=== PATIENT | male | born 1945 | race Caucasian/White ===

== ENCOUNTER → 2023-03-20 08:27 | Outpatient (REF) | payer MEDICARE, OTHER, SELFPAY ==
[2023-03-20 07:38] LABS: % Basophils 0.4 % (0-2); % Eosinophils 2.4 % (0-6); % Immature Granulocytes 0.2 % (0-0.5); % Lymphocytes 24.8 % (20.5-51.1); % Monocytes 8.4 % (1.7-9.3); % Neutrophils 63.8 % (42.2-75.2); Absolute Basophils 0.1 10^3/uL (0-0.2); Absolute Eosinophils 0.3 10^3/uL (0-0.7); Absolute Lymphocytes 2.8 10^3/uL (1.2-3.4); Absolute Neutrophils 7.2 10^3/uL (1.4-6.5); Hematocrit 41.5 % (39.0-52.0); Mean Corp Hgb Conc. 33.7 g/dL (33.0-37.0); Mean Platelet Volume 9.3 fL (7.4-10.4); Nucleated Red Blood Cells % 0 % (-); Platelet Count 167 10^3/uL (130-400); Red Blood Cell Count 4.37 10^6/uL (4.70-6.10); Red Cell Dist. Width 12.4 % (11.5-14.5); White Blood Cell Count 11.3 10^3/uL (4.8-10.8)
[2023-03-20 07:41] LABS: Urine Albumin Trace (Neg - Trace); Urine Bilirubin Negative (Negative); Urine Character Clear (Clear); Urine Color Yellow; Urine Glucose Trace (Negative); Urine Ketone Trace (Negative); Urine Leukocyte Trace (Negative); Urine Nitrite Negative (Negative); Urine Occult Blood 4+ (Negative); Urine Specific Gravity 1.015 (<1.030); Urine Urobilinogen Negative (Neg - 1+); Urine pH 6.5 (5.0-9.0)
[2023-03-20 08:01] LABS: ALT (SGPT) 11 U/L (0-50); AST (SGOT) 24 U/L (17-59); Albumin 3.9 g/dl (3.5-5.0); Alkaline Phosphatase 83 U/L (38-126); Blood Urea Nitrogen 28 mg/dl (9-20); Calcium 9.5 mg/dl (8.4-10.2); Carbon Dioxide 29 mmol/L (22-30); Chloride 99 mmol/L (98-107); Glucose 91 mg/dl (70-99); HDL Cholesterol 55 mg/dl; LDL Cholesterol, Calculated 148 mg/dl; Potassium 4.8 mmol/L (3.5-5.1); Sodium 136 mmol/L (135-145); Total Bilirubin 1.1 mg/dl (0.2-1.3); Total Cholesterol 220 mg/dl (50-199); Total Protein 6.6 g/dl (6.3-8.2); Triglyceride 85 mg/dl (10-149); Very Low Density Lipoprotein 17 mg/dl (0-30); eGFR > 60.00
[2023-03-20 08:14] LABS: Vitamin D, 25-OH*** 89.1 ng/mL (30-80)
[2023-03-20 08:28] LABS: PSA, Total - Screen 2.11 ng/ml (0.0-4.0)
[2023-03-20 08:31] LABS: Urine Red Blood Cell 0-2 /HPF (0-2); Urine White Cell 0-2 /HPF (0-5)
[2023-03-20 08:47] LABS: Vitamin B12 572 pg/ml (239-931)
[2023-03-20 09:15] LABS: Intact PTH 46.9 pg/ml (13.6-85.8)
== END ==
LOC: HWRAD 08:27
PROVIDERS: ATTENDING PHYSICIAN Nurse Practitioner Family; FAMILY PHYSICIAN Internal Medicine
DX: E21.3 Hyperparathyroidism, unspecified (principal); N18.31 Chronic kidney disease, stage 3a; R41.3 Other amnesia; E78.5 Hyperlipidemia, unspecified; Z12.5 Encounter for screening for malignant neoplasm of prostate; R29.810 Facial weakness
CPT/HCPCS: 36415; 80053; 80061; 81003; 81015; 82306; 82607; 83970; 85025; G0103

== ENCOUNTER → 2023-03-23 13:56 | Outpatient (REF) | payer MEDICARE, OTHER, SELFPAY | LOC: HWRAD 13:56 | PROVIDERS: ATTENDING PHYSICIAN Nurse Practitioner Family | DX: R41.3 Other amnesia (principal); R20.2 Paresthesia of skin; R29.810 Facial weakness | CPT/HCPCS: 70450 ==

== ENCOUNTER → 2023-04-23 10:53 | Outpatient (REF) | payer MEDICARE, OTHER, SELFPAY | LOC: HWRAD 10:53 | PROVIDERS: ATTENDING PHYSICIAN Nurse Practitioner Family; FAMILY PHYSICIAN Internal Medicine | DX: D72.829 Elevated white blood cell count, unspecified (principal); R31.9 Hematuria, unspecified | CPT/HCPCS: 76770 ==

== ENCOUNTER → 2023-06-06 | Outpatient (REF) | payer MEDICARE, OTHER, SELFPAY | LOC: DHSLP | PROVIDERS: ATTENDING PHYSICIAN Internal Medicine Critical Care Medicine; FAMILY PHYSICIAN Internal Medicine | DX: G47.33 Obstructive sleep apnea (adult) (pediatric) (principal); G47.31 Primary central sleep apnea; G47.61 Periodic limb movement disorder | CPT/HCPCS: 95811 ==

== ENCOUNTER → 2023-06-25 12:35 | Outpatient (REF) | payer MEDICARE, OTHER, SELFPAY | LOC: HWRCS 12:35 | PROVIDERS: ATTENDING PHYSICIAN Nurse Practitioner Family; FAMILY PHYSICIAN Internal Medicine | DX: G47.31 Primary central sleep apnea (principal) | CPT/HCPCS: 93306 ==

== ENCOUNTER → 2023-07-31 10:31 | Outpatient (REF) | payer MEDICARE, OTHER, SELFPAY | LOC: DHSLP 10:31 | PROVIDERS: ATTENDING PHYSICIAN Internal Medicine Critical Care Medicine; FAMILY PHYSICIAN Internal Medicine | DX: G47.33 Obstructive sleep apnea (adult) (pediatric) (principal); G47.61 Periodic limb movement disorder; G47.00 Insomnia, unspecified | CPT/HCPCS: 95811 ==

== ENCOUNTER 2023-09-18 11:24 | Emergency (ER) | payer MEDICARE, OTHER, SELFPAY ==
[2023-09-18 11:25] VITALS: BP 145/76
--- NOTE | 2023-09-18 12:52 | ED.SKININJ ---
HPI-Injury
General
Chief Complaint: Skin Surface Trauma
Source: patient
Exam Limitations: none
Time Seen by Provider: 09/18/23 11:57
Nursing documentation reviewed up to this point in time: agreed with
History of Present Illness-Injury
Initial Injury comments:
77-year-old male with history of A-fib on Eliquis, HTN, HLD, esophagectomy, hypothyroid states earlier today he was trimming bushes, he stepped over a small wall and impaled his right calf on a branch that was sticking up. He is unsure of his last
tetanus immunization.
Past History
Past History
ED Past Medical History: Arrthythmia (A-fib on Eliquis), HTN, Hypercholesterolemia and Other (Esophageal cancer )
ED Past Surgical History: Other (Cataract, espohagectomy)
Social History
Tobacco: Non-smoker
Alcohol: None
Drug: None
Personal:
Living: with family
Review of Systems
Review of Systems
Allergies reviewed?: Yes
All Other Systems: ROS reviewed and negative except as documented in HPI and ROS
Skin: Reports other (Cut back of right calf)
Skin Exam
Laceration
posterior mid right calf:
Length in cm: 6
Orientation: L shaped ('V' shaped)
Type of Laceration: simple
Any active bleeding?: no active bleeding
Distal skin color and temperature: normal-warm & good color
Normal distal neurovascular exam: Yes
Range of motion: full
Phy Exam
Physical Exam
Physical Exam:
PHYSICAL EXAMINATION:
General: no apparent distress, not acutely ill
Neuro: alert and oriented.
Psychiatric: well kept. interactive and cooperative
Musculoskeletal: Moves with ease
Skin: Warm, pink.
Course
Orders/Labs/Results
Orders:
Orders
09/18/23 12:27
Tetanus/Diphth/Acelpertussis [Adacel] 0.5 ml IM .ONCE ONE
Vital Signs
Initial and Last Documented VS:
Initial Vital Signs
Temp Pulse Resp BP Pulse Ox
98.8 F 83 18 145/76 96
09/18/23 11:25 09/18/23 11:25 09/18/23 11:25 09/18/23 11:25 09/18/23 11:25
Last Documented Vital Signs
Temp Pulse Resp BP Pulse Ox
98.8 F 83 18 145/76 96
09/18/23 11:25 09/18/23 11:25 09/18/23 11:25 09/18/23 11:25 09/18/23 11:25
Procedures
Laceration Closure
Posterior mid right calf:
Status of Wound: clean
Size of Wound in cm: 6
Description of Wound Edges: sharp
Preparation: cleaned with saline
Anesthesia: 1% Lidocaine
Revision/Debridement: routine- no revision
Wound exploration: explored to base- no FB
Type of Closure: single layer closure
Skin Closure Material: 3-0 nylon
Number of sutures: 7
Additional information:
Antibiotic ointment, dressing and Carrillo wrap applied. No active bleeding
MDM/Problems Addressed
MDM/Problems Addressed:
77-year-old male with history of A-fib on Eliquis, HTN, HLD, esophagectomy, hypothyroid states earlier today he was trimming bushes, he stepped over a small wall and impaled his right calf on a branch that was sticking up. He is unsure of his last
tetanus immunization.
*Critical Care Note
Total Time (30-74mins, 75-104mins- exclusive of procedures): Not Applicable
ED Attending Note
-
Portions of this chart may have been created with voice recognition software.� Occasional wrong word or��sound alike� substitutions may have occurred due to the inherent limitations of voice recognition software.
Discharge Plan
Departure
Patient Disposition: Home (Routine Discharge)
Date of Disposition: 09/18/23
Time of Disposition: 12:57
Patient with high blood pressure during this ER visit?: No
Condition: Good
Discharge Problem:
Laceration of right calf
Instructions: Laceration Repair With Stitches (DC)
Prescriptions:
No Action
ascorbic acid (vitamin C) [Vitamin C] 500 MG tablet
2,000 mg PO DAILY
multivitamin with folic acid [Tab-A-Gabby] 1 TABLET tablet
1 tab PO DAILY
atorvastatin 10 mg tablet
10 mg PO DAILY
levothyroxine 25 mcg tablet
25 mcg PO DAILY
tamsulosin 0.4 mg capsule
0.4 mg PO DAILY
Eliquis 5 mg tablet
5 mg PO BID Qty: 60 0RF
metoprolol succinate [Toprol XL] 25 mg tablet extended release 24 hr
12.5 mg PO DAILY Qty: 30 0RF
tramadol 50 mg tablet
50 mg PO Q6HPRN PRN (Reason: severe pain/breakthrough pain) Qty: 5 0RF
acetaminophen [Tylenol Extra Strength] 500 mg tablet
1,000 mg PO Q6HPRN PRN (Reason: mild pain) Qty: 1 0RF
Referrals:
Ni Mendoza MD [Family Provider] - Call in 1-3 days for appt
Activity Restrictions/Additional Instructions:
As we discussed, have the sutures removed in 10 to 12 days.
Seek medical care immediately for signs of infection which may include increasing redness, pain, swelling, red streak up the leg or fever
Interventions
Interventions:
*Risk Screen - Suicide Last Done: 09/18/23 11:42
*General Assessment Last Done: 09/18/23 11:42
*Neglect/Abuse Screening Last Done: 09/18/23 11:42
ED- Fall Risk Assessment Last Done: 09/18/23 11:47
*ED COVID-19 Vaccine History Last Done: 09/18/23 11:42
*Nursing Disposition Last Done: 09/18/23 13:21
ED-Skin Assessment Last Done: 09/18/23 11:46
Discharge Date and Time
Discharge Date/Time: 09/18/23 13:22
Print Language: CROATIAN
[2023-09-18] MEDS: ADACEL 0.5 ML IM (13:13)
== END 2023-09-18 13:22 | disposition home or self-care (01) ==
LOC: EMR 11:24
PROVIDERS: EMERGENCY PHYSICIAN Emergency Medicine; FAMILY PHYSICIAN Internal Medicine
DX: S81.811A Laceration without foreign body, right lower leg, initial encounter (principal); W45.8XXA Other foreign body or object entering through skin, initial encounter; Z23 Encounter for immunization; I48.91 Unspecified atrial fibrillation; I10 Essential (primary) hypertension; E78.00 Pure hypercholesterolemia, unspecified; E03.9 Hypothyroidism, unspecified; Z79.01 Long term (current) use of anticoagulants; Z85.01 Personal history of malignant neoplasm of esophagus
CPT/HCPCS: 99282; 90471; 90715

== ENCOUNTER → 2023-10-19 08:13 | Outpatient (REF) | payer MEDICARE, OTHER, SELFPAY ==
[2023-10-19 10:04] LABS: Blood Urea Nitrogen 23 mg/dl (9-20); Calcium 9.5 mg/dl (8.4-10.2); Carbon Dioxide 29 mmol/L (22-30); Chloride 98 mmol/L (98-107); Glucose 67 mg/dl (70-99); Potassium 4.6 mmol/L (3.5-5.1); Sodium 135 mmol/L (135-145); eGFR > 60.00
== END ==
LOC: REG 08:13
PROVIDERS: ATTENDING PHYSICIAN Neurological Surgery; FAMILY PHYSICIAN Family Medicine
DX: Z01.812 Encounter for preprocedural laboratory examination (principal); D32.9 Benign neoplasm of meninges, unspecified
CPT/HCPCS: 36415; 80048

== ENCOUNTER → 2024-03-21 08:23 | Outpatient (REF) | payer MEDICARE, OTHER, SELFPAY ==
[2024-03-21 09:54] LABS: % Basophils 0.9 % (0-2); % Eosinophils 2.6 % (0-6); % Immature Granulocytes 0.1 % (0-0.5); % Monocytes 9.9 % (1.7-9.3); % Neutrophils 51.5 % (42.2-75.2); Absolute Basophils 0.1 10^3/uL (0-0.2); Absolute Eosinophils 0.2 10^3/uL (0-0.7); Absolute Lymphocytes 2.8 10^3/uL (1.2-3.4); Absolute Monocytes 0.8 10^3/uL (0.1-0.6); Absolute Neutrophils 4.1 10^3/uL (1.4-6.5); Hematocrit 41.5 % (39.0-52.0); Hemoglobin 13.8 g/dL (13.0-18.0); Mean Corp Hgb Conc. 33.3 g/dL (33.0-37.0); Mean Corpuscular Hgb 30.7 pg (27.0-31.0); Mean Corpuscular Volume 92.2 fL (80.0-94.0); Nucleated Red Blood Cells % 0 % (-); Platelet Count 165 10^3/uL (130-400); Red Cell Dist. Width 13.5 % (11.5-14.5)
[2024-03-21 10:07] LABS: ALT (SGPT) 12 U/L (0-50); AST (SGOT) 26 U/L (17-59); Albumin 4.1 g/dl (3.5-5.0); Alkaline Phosphatase 81 U/L (38-126); Blood Urea Nitrogen 23 mg/dl (9-20); Calcium 9.3 mg/dl (8.4-10.2); Carbon Dioxide 26 mmol/L (22-30); Chloride 96 mmol/L (98-107); Glucose 88 mg/dl (70-99); HDL Cholesterol 47 mg/dl; LDL Cholesterol, Calculated 138 mg/dl; Potassium 4.8 mmol/L (3.5-5.1); Sodium 130 mmol/L (135-145); Total Bilirubin 1.2 mg/dl (0.2-1.3); Total Cholesterol 203 mg/dl (50-199); Total Protein 6.8 g/dl (6.3-8.2); Triglyceride 92 mg/dl (10-149); Very Low Density Lipoprotein 18 mg/dl (0-30); eGFR 56.58
[2024-03-21 10:34] LABS: TSH Reflex To Free T4 3.49 uIU/ml (0.47-4.68)
== END ==
LOC: HWLAB 08:23
PROVIDERS: ATTENDING PHYSICIAN Family Medicine
DX: N18.31 Chronic kidney disease, stage 3a (principal); Z85.01 Personal history of malignant neoplasm of esophagus; R53.83 Other fatigue; E03.9 Hypothyroidism, unspecified; Z13.1 Encounter for screening for diabetes mellitus; Z13.6 Encounter for screening for cardiovascular disorders
CPT/HCPCS: 36415; 80053; 80061; 84443; 85025

== ENCOUNTER → 2024-04-08 11:59 | Outpatient (REF) | payer MEDICARE, OTHER, SELFPAY ==
[2024-04-08 15:27] LABS: Blood Urea Nitrogen 28 mg/dl (9-20); Calcium 9.5 mg/dl (8.4-10.2); Carbon Dioxide 26 mmol/L (22-30); Chloride 98 mmol/L (98-107); Glucose 100 mg/dl (70-99); Potassium 4.8 mmol/L (3.5-5.1); Sodium 132 mmol/L (135-145); eGFR > 60.00
== END ==
LOC: HWLAB 11:59
PROVIDERS: ATTENDING PHYSICIAN Family Medicine
DX: E87.1 Hypo-osmolality and hyponatremia (principal)
CPT/HCPCS: 36415; 80048

== ENCOUNTER → 2024-06-04 14:03 | Outpatient (REF) | payer MEDICARE, OTHER, SELFPAY ==
[2024-06-04 16:37] LABS: Urine Albumin 2+ (Neg - Trace); Urine Bilirubin Negative (Negative); Urine Character Clear (Clear); Urine Color Yellow; Urine Glucose Negative (Negative); Urine Ketone Negative (Negative); Urine Leukocyte 1+ (Negative); Urine Nitrite Negative (Negative); Urine Occult Blood 4+ (Negative); Urine Urobilinogen Negative (Neg - 1+)
[2024-06-04 16:45] LABS: Urine Bacteria Few (Negative); Urine Mucus Moderate; Urine Squamous Cell 0-2 /LPF (Few); Urine White Cell 0-2 /HPF (0-5)
== END ==
LOC: CLAB 14:03
PROVIDERS: ATTENDING PHYSICIAN Urology
DX: N40.1 Benign prostatic hyperplasia with lower urinary tract symptoms (principal)
CPT/HCPCS: 81003; 81015

== ENCOUNTER → 2024-06-23 12:36 | Outpatient (REF) | payer MEDICARE, OTHER, SELFPAY | LOC: RAD 12:36 | PROVIDERS: ATTENDING PHYSICIAN Urology; FAMILY PHYSICIAN Family Medicine | DX: N40.1 Benign prostatic hyperplasia with lower urinary tract symptoms (principal); R31.29 Other microscopic hematuria | CPT/HCPCS: 74178; Q9967 ==

== ENCOUNTER → 2024-08-13 11:42 | Outpatient (REF) | payer MEDICARE, OTHER, SELFPAY | LOC: HWRAD 11:42 | PROVIDERS: ATTENDING PHYSICIAN Nurse Practitioner Family; FAMILY PHYSICIAN Family Medicine | DX: R91.1 Solitary pulmonary nodule (principal) | CPT/HCPCS: 71250 ==

== ENCOUNTER 2024-09-21 08:40 | Emergency (ER) | payer MEDICARE, OTHER, SELFPAY ==
[2024-09-21 08:45] VITALS: BP 136/71
--- NOTE | 2024-09-21 09:42 | ED.GENMED ---
History of Present Illness
General
Chief Complaint: Allergic Reaction
Source: patient and spouse
Exam Limitations: none
Time Seen by Provider: 09/21/24 09:32
Nursing documentation reviewed up to this point in time: agreed with
History of Present Illness
History of Present Illness:
78-year-old male with a past medical history as documented presents to the ER for evaluation of redness and itching in the left forearm. Patient was doing some yard work and was stung by wasp on his left forearm 2 days ago. He had some localized
itching and since then has had increased redness and pruritus of the forearm which prompted ER visit. He has not had any pain in the forearm. He has not had a fever. He denies any shortness of breath, coughing. He has not had any rash elsewhere
his body. Denies any GI symptoms. Denies known history of bee allergy. He has been icing the area but this has not provided sufficient relief.
Past History
Past History
ED Past Medical History: Arrthythmia (A-fib on Eliquis), HTN, Hypercholesterolemia and Other (Esophageal cancer )
ED Past Surgical History: Other (Cataract, espohagectomy)
Social History
Tobacco: Non-smoker
Alcohol: None
Drug: None
Personal:
Living: with family
Review of Systems
Review of Systems
All Other Systems: ROS reviewed and negative except as documented in HPI and ROS
Constitutional: Denies fever
EENT: Denies mouth swelling
Respiratory: Denies cough or trouble breathing
Cardiac: Denies chest pain
ABD/GI: Denies abdominal pain, nausea or vomiting
Skin: Reports itching and rash
Phy Exam
Physical Exam
Physical Exam:
General: Awake, alert, oriented x3 and very pleasant; no acute distress
Head: Normocephalic, atraumatic
Eyes: Conjunctiva normal, EOMI
Throat: Airway intact, handling secretions, no swelling noted
Neck: Trachea midline, supple without meningismus
Lungs: Clear to auscultation bilaterally, no wheezing, rales, rhonchi
Heart: Regular rate and rhythm, no murmurs, gallops, or rubs
Neuro: No gross deficits
Skin: Patient has small hive on the ventral aspect of the distal left and a confluent area of erythema extending from this area more proximally up the forearm terminates just distal to the elbow�erythema is localized to the ventral aspect, not
circumferential, no redness noted on the dorsum of the forearm, no vesicles or papules, no induration, nontender
Extremities: Rash as above; good left radial pulse, good range of motion of the elbow and wrist without pain
Scores
Heart Failure Risk
Heart Failure Risk Score: Not Applicable
Heart Score for Chest Pain Patients
STEMI patient?: Not applicable
Withdrawal Assessment of Alcohol
Withdrawal Assessment Completed?: Not applicable
Course
Orders/Labs/Results
Orders:
Orders
09/21/24 09:39
Prednisone [Deltasone] 50 mg PO NOW STA
Vital Signs
Initial and Last Documented VS:
Initial Vital Signs
Temp Pulse Resp BP Pulse Ox
36.5 C 91 16 136/71 97
09/21/24 08:45 09/21/24 08:45 09/21/24 08:45 09/21/24 08:45 09/21/24 08:45
Last Documented Vital Signs
Temp Pulse Resp BP Pulse Ox
36.5 C 91 16 136/71 97
09/21/24 08:45 09/21/24 08:45 09/21/24 08:45 09/21/24 08:45 09/21/24 08:45
MDM/Problems Addressed
Differential Diagnosis Includes:
Allergic reaction/dermatitis, cellulitis
MDM/Problems Addressed:
78-year-old male presents to the ER for evaluation of erythema and itching in the left forearm extending from the area of recent bee sting. Vitals and exam as above. There is not painful or tender and optically warm�low suspicion at this is an
acute cellulitis suspected it is a localized allergic reaction to insect sting. Will start on short course of prednisone and advised to take antihistamines as needed for itching. Fortunately patient has a primary care appointment scheduled for
this week and I advised him to follow-up on his symptoms with primary doctor. We spoke about return precautions and all questions were answered.
*Pulse Oximetry
SaO2: 97
Oxygen Mode of Delivery: Room air
Patient hypoxic: no (97%)
*Critical Care Note
Total Time (30-74mins, 75-104mins- exclusive of procedures): Not Applicable
Data Reviewed
Source: patient and spouse
Prescriptions/Medications Considered But Not Given:
Considered antibiotics
ED Attending Note
-
Portions of this chart may have been created with voice recognition software.� Occasional wrong word or��sound alike� substitutions may have occurred due to the inherent limitations of voice recognition software.
Discharge Plan
Departure
Patient Disposition: Home (Routine Discharge)
Date of Disposition: 09/21/24
Time of Disposition: 09:40
Patient with high blood pressure during this ER visit?: No
Discharge Problem:
Insect sting, Allergic reaction
Instructions: Allergic reaction - ED discharge instructions
Prescriptions:
New
prednisone 10 mg Tablet
See Rx Instructions .ROUTE .COMPLEX Qty: 30 0RF
Rx Instructions:
Take By Mouth:
40 mg daily x3 days, 30 mg daily x3 days,
20 mg daily x3 days, 10 mg daily x3 days.
No Action
ascorbic acid (vitamin C) [Vitamin C] 500 MG tablet
2,000 mg PO DAILY
multivitamin with folic acid [Tab-A-Gabby] 1 TABLET tablet
1 tab PO DAILY
atorvastatin 10 mg tablet
10 mg PO DAILY
levothyroxine 25 mcg tablet
25 mcg PO DAILY
tamsulosin 0.4 mg capsule
0.4 mg PO DAILY
Eliquis 5 mg tablet
5 mg PO BID Qty: 60 0RF
metoprolol succinate [Toprol XL] 25 mg tablet extended release 24 hr
12.5 mg PO DAILY Qty: 30 0RF
tramadol 50 mg tablet
50 mg PO Q6HPRN PRN (Reason: severe pain/breakthrough pain) Qty: 5 0RF
acetaminophen [Tylenol Extra Strength] 500 mg tablet
1,000 mg PO Q6HPRN PRN (Reason: mild pain) Qty: 1 0RF
Referrals:
Dell Patel Jr., DO [Family Provider, Internal Medicine] - Keep scheduled appt
Activity Restrictions/Additional Instructions:
Thank you for visiting the Emergency Department at [facility].
1. Please schedule a follow up appointment as directed. Call first thing tomorrow morning to make an appointment.
2. If indicated, please take your medications as instructed and indicated on discharge paperwork.
3. If any of your symptoms do not improve, or persist, or become more severe within 6-12 hours, please return to the emergency department for further care.
4. Please return to the emergency department if you develop a headache, neck pain/stiffness, fever greater than 100.4F, chest pain, shortness of breath, persistent nausea, vomiting, slurred speech, difficulty walking, numbness/tingling, weakness,
signs of infection or any other symptoms that are worrisome to you.
Please call [phone] if you have any questions.
Interventions
Interventions:
*Risk Screen - Suicide Last Done: 09/21/24 08:46
*Neglect/Abuse Screening Last Done: 09/21/24 08:46
Discharge Date and Time
Print Language: SYRIAC
[2024-09-21 09:48] VITALS: BMI 27.4
[2024-09-21 09:50] VITALS: BP 136/81
[2024-09-21] MEDS: DELTASONE 50 MG PO (09:54)
== END 2024-09-21 09:56 | disposition home or self-care (01) ==
LOC: EMR 08:40
PROVIDERS: EMERGENCY PHYSICIAN Emergency Medicine; FAMILY PHYSICIAN Family Medicine
DX: T63.461A Toxic effect of venom of wasps, accidental (unintentional), initial encounter (principal); L29.9 Pruritus, unspecified; X58.XXXA Exposure to other specified factors, initial encounter; E78.00 Pure hypercholesterolemia, unspecified; I10 Essential (primary) hypertension; I48.91 Unspecified atrial fibrillation; Z79.01 Long term (current) use of anticoagulants
CPT/HCPCS: 99283

== ENCOUNTER → 2024-09-22 06:49 | Outpatient (REF) | payer MEDICARE, OTHER, SELFPAY ==
[2024-09-22 09:34] LABS: Hematocrit 41.6 % (39.0-52.0); Hemoglobin 13.8 g/dL (13.0-18.0); Mean Corp Hgb Conc. 33.2 g/dL (33.0-37.0); Mean Corpuscular Volume 91.4 fL (80.0-94.0); Nucleated Red Blood Cells % 0 % (-); Platelet Count 166 10^3/uL (130-400); Red Cell Dist. Width 14.8 % (11.5-14.5)
[2024-09-22 09:55] LABS: ALT (SGPT) 14 U/L (0-50); AST (SGOT) 26 U/L (17-59); Albumin 4.0 g/dl (3.5-5.0); Alkaline Phosphatase 78 U/L (38-126); Blood Urea Nitrogen 19 mg/dl (9-20); Calcium 9.4 mg/dl (8.4-10.2); Carbon Dioxide 24 mmol/L (22-30); Chloride 104 mmol/L (98-107); Glucose 105 mg/dl (70-99); HDL Cholesterol 48 mg/dl; LDL Cholesterol, Calculated 83 mg/dl; Potassium 4.3 mmol/L (3.5-5.1); Sodium 133 mmol/L (135-145); Total Protein 6.6 g/dl (6.3-8.2); Very Low Density Lipoprotein 14 mg/dl (0-30); eGFR > 60.00
== END ==
LOC: HWLAB 06:49
PROVIDERS: ATTENDING PHYSICIAN Family Medicine
DX: N18.31 Chronic kidney disease, stage 3a (principal); Z85.01 Personal history of malignant neoplasm of esophagus; R53.83 Other fatigue; E03.9 Hypothyroidism, unspecified; Z13.1 Encounter for screening for diabetes mellitus; E78.2 Mixed hyperlipidemia
CPT/HCPCS: 36415; 80053; 80061; 84443; 85025

== ENCOUNTER → 2024-12-29 10:15 | Outpatient (REF) | payer MEDICARE, OTHER, SELFPAY | LOC: CLAB 10:15 | PROVIDERS: ATTENDING PHYSICIAN Urology | DX: R31.29 Other microscopic hematuria (principal) | CPT/HCPCS: 88112 ==

== ENCOUNTER 2025-01-01 18:09 | Emergency (ER) | payer MEDICARE, OTHER, SELFPAY ==
[2025-01-01 18:11] VITALS: BP 166/138
--- NOTE | 2025-01-01 18:38 | ED.GENMED ---
History of Present Illness
General
Chief Complaint: Abdominal Symptoms
Source: patient
Exam Limitations: none
Time Seen by Provider: 01/01/25 18:20
History of Present Illness
History of Present Illness:
79-year-old male with history of A-fib on Eliquis presents complaining of chest discomfort started shortly after eating. He was belching. He states he was spitting. He could not swallow his saliva. He described a lump in the bottom of his chest.
He has a history of esophagectomy. This persisted until he got here. He states he vomited out front and now he is feeling improved. He does note however he still feels short of breath and he notes leg swelling has been getting worse over the
past month. No fevers. No abdominal pain. No other complaints
Past History
Past History
ED Past Medical History: Arrthythmia (A-fib on Eliquis), HTN, Hypercholesterolemia and Other (Esophageal cancer )
ED Past Surgical History: Other (Cataract, espohagectomy)
Social History
Tobacco: Non-smoker
Alcohol: None
Drug: None
Personal:
Living: with family
Phy Exam
Physical Exam
Physical Exam:
General: Well-appearing male nontoxic no acute respiratory distress
HEENT normal cephalic atraumatic
Heart: Irregular rate and rhythm
Lungs: Clear no wheeze
Abdomen is soft nontender
Extremities: Pitting edema bilateral lower extremities
Skin is warm no rash
Course
Orders/Labs/Results
Orders:
Orders
01/01/25 18:14
EKG [Electrocardiogram (*1)] Urgent
Reason for Study: Chest Pain
EKG- Treatment ONCE
01/01/25 18:35
CR Chest - 2 Views Urgent
Comment:
Reason For Exam: chest pain, sob
01/01/25 19:11
Complete Blood Count/With Diff Urgent
Comprehensive Metabolic Panel Urgent
NT-proBNP Urgent
Troponin I Urgent
01/01/25 21:37
Troponin I Urgent
Abnormal Lab Results
01/01/25
19:11
MCH 31.2 H pg
(27.0-31.0)
Absolute Monos (auto) 0.7 H 10^3/uL
(0.1-0.6)
Sodium 131 L mmol/L
(135-145)
BUN 26 H mg/dl
(9-20)
Glucose 154 H mg/dl
(70-99)
01/01/25 19:11
01/01/25 19:11
Vital Signs
Initial and Last Documented VS:
Initial Vital Signs
Temp Pulse Resp BP Pulse Ox
97.5 F 71 18 166/138 98
01/01/25 18:11 01/01/25 18:11 01/01/25 18:11 01/01/25 18:11 01/01/25 18:11
Last Documented Vital Signs
Temp Pulse Resp BP Pulse Ox
98.3 F 91 17 130/82 98
01/01/25 19:33 01/01/25 22:15 01/01/25 22:15 01/01/25 22:00 01/01/25 22:15
MDM/Problems Addressed
Differential Diagnosis Includes:
Patient presented with chest discomfort belching and salivation after eating dinner tonight. This seemed to have resolved in triage when he vomited. Question possible impacted food bolus however he notes shortness of breath and leg swelling as
well. Will check EKG labs and x-ray of the chest.
*Pulse Oximetry
SaO2: 98
Oxygen Mode of Delivery: Room air
Patient hypoxic: no
*Critical Care Note
Total Time (30-74mins, 75-104mins- exclusive of procedures): Not Applicable
Update Note
Update Note:
Patient feeling better. No further belching or salivating. I suspect he had a food bolus that was lodged and broke itself free when he vomited.
Initial troponin 0.022 which is within normal limits. Will repeat the value
repeat troponin 0.026. Troponin is stable. No indication for admission. Will discharge
Please note, patient is slightly volume overloaded
BNP is elevated but no respiratory distress. Will have him take Lasix daily for the next several days and follow-up with cardiology
ED Attending Note
-
Portions of this chart may have been created with voice recognition software.� Occasional wrong word or��sound alike� substitutions may have occurred due to the inherent limitations of voice recognition software.
Discharge Plan
Departure
Patient Disposition: Home (Routine Discharge)
Date of Disposition: 01/01/25
Time of Disposition: 22:46
Patient with high blood pressure during this ER visit?: No
Discharge Problem:
Chest pain
Instructions: Chest Pain DCA Follow Up
Prescriptions:
New
furosemide [Lasix] 20 mg tablet
20 mg PO DAILY Qty: 4 0RF
No Action
ascorbic acid (vitamin C) [Vitamin C] 500 MG tablet
2,000 mg PO DAILY
multivitamin with folic acid [Tab-A-Gabby] 1 TABLET tablet
1 tab PO DAILY
atorvastatin 10 mg tablet
10 mg PO DAILY
levothyroxine 25 mcg tablet
25 mcg PO DAILY
tamsulosin 0.4 mg capsule
0.4 mg PO DAILY
Eliquis 5 mg tablet
5 mg PO BID Qty: 60 0RF
metoprolol succinate [Toprol XL] 25 mg tablet extended release 24 hr
12.5 mg PO DAILY Qty: 30 0RF
tramadol 50 mg tablet
50 mg PO Q6HPRN PRN (Reason: severe pain/breakthrough pain) Qty: 5 0RF
acetaminophen [Tylenol Extra Strength] 500 mg tablet
1,000 mg PO Q6HPRN PRN (Reason: mild pain) Qty: 1 0RF
prednisone 10 mg Tablet
See Rx Instructions .ROUTE .COMPLEX Qty: 30 0RF
Rx Instructions:
Take By Mouth:
40 mg daily x3 days, 30 mg daily x3 days,
20 mg daily x3 days, 10 mg daily x3 days.
Referrals:
Dell Patel Jr., DO [Family Provider, Internal Medicine]
Activity Restrictions/Additional Instructions:
Please return here for worsening symptoms otherwise follow-up with your air pollution auditor. Take lasix 20mg daily for 4 days.
Interventions
Interventions:
*Risk Screen - Suicide Last Done: 01/01/25 18:11
*General Assessment Last Done: 01/01/25 18:11
*Neglect/Abuse Screening Last Done: 01/01/25 19:27
*ED- Fall Risk Assessment Last Done: 01/01/25 19:27
*ED COVID-19 Vaccine History Last Done: 01/01/25 18:11
*ED Influenza Vaccine History Last Done: 01/01/25 18:11
KC-Xxrliz-Mljvaztbej Assessment Last Done: 01/01/25 19:27
Discharge Date and Time
Print Language: DJIBOUTIAN
[2025-01-01 19:15] VITALS: BP 132/90
[2025-01-01 19:27] LABS: Hematocrit 44.8 % (39.0-52.0); Hemoglobin 15.1 g/dL (13.0-18.0); Mean Corp Hgb Conc. 33.7 g/dL (33.0-37.0); Mean Corpuscular Volume 92.6 fL (80.0-94.0); Nucleated Red Blood Cells % 0 % (-); Platelet Count 159 10^3/uL (130-400); Red Cell Dist. Width 13.2 % (11.5-14.5)
[2025-01-01 19:57] LABS: ALT (SGPT) 26 U/L (0-50); AST (SGOT) 33 U/L (17-59); Albumin 3.9 g/dl (3.5-5.0); Alkaline Phosphatase 93 U/L (38-126); Blood Urea Nitrogen 26 mg/dl (9-20); Calcium 8.9 mg/dl (8.4-10.2); Carbon Dioxide 28 mmol/L (22-30); Chloride 99 mmol/L (98-107); Glucose 154 mg/dl (70-99); Potassium 4.2 mmol/L (3.5-5.1); Sodium 131 mmol/L (135-145); Total Protein 6.7 g/dl (6.3-8.2); eGFR > 60.00
[2025-01-01 20:07] LABS: Troponin I 0.022 ng/ml
[2025-01-01 21:05] VITALS: BP 129/71
[2025-01-01 22:00] VITALS: BP 130/82
[2025-01-01 22:34] LABS: Troponin I 0.026 ng/ml
== END 2025-01-01 23:09 | disposition home or self-care (01) ==
LOC: EMR 18:09
PROVIDERS: Physician Assistant; EMERGENCY PHYSICIAN Emergency Medicine; FAMILY PHYSICIAN Family Medicine
DX: R07.89 Other chest pain (principal); I48.91 Unspecified atrial fibrillation; I10 Essential (primary) hypertension; E78.00 Pure hypercholesterolemia, unspecified; Z79.01 Long term (current) use of anticoagulants; Z85.01 Personal history of malignant neoplasm of esophagus
CPT/HCPCS: 99283; 71046; 80053; 83880; 84484; 85025; 93005